=== PATIENT | male | born 1935 | race Caucasian/White ===

== ENCOUNTER → 2018-10-24 | Outpatient (CLI) | payer MEDICARE ==
[~2018-10-24] VITALS: Ht 172.7 cm; Wt 64.8 kg
[~2018-10-24] MED LIST: ASPIRIN E.C. 8181 MG PO; B COMPLEX #11 TAB PO; BIAXIN 500MG T500 MG PO; CARDIZEM CD 24240 MG PO; CLARITIN 1010 MG/TAB PO; COLESTID 1GM1 G PO; COZAAR 25MG25 MG/TAB PO; DEMADEX100 MG PO; ELIQUIS 5MG PO; EXELON3 MG PO; FLAGYL500 MG PO; FLOMAX 0.40.4 MG/CAP PO; GARLIC100 MG PO; HYDROCORTISONE30 G3 TP; IPRATROPIUM BROM3 M1 INH; LACRI LUBE1 OIN OP; LASIX 40MG TABL40 MG PO; LOPRESSOR 550 MG/TAB PO; MULTI-VITAMIN W1 TA1 PO; NAMENDA 10MG TA10 MG PO; NITROSTAT0.4 MG/TAB SL; OMEGA-3 1000 MG1 CAP PO; PRIL40 PO; PROBIOTIC FORMU1 CAP PO; PROCTOFOAM-HC F10 G1 RC; PROTONIX 40MG T40 MG PO; ROBITUSSIN A-C S1 M1 PO; SALONPAS; SENNA-LAX8.6 MG PO; SYSTANE 0.4%-0.1 SOL OP; TAMBOCOR 1100 MG/TAB PO; TOPROL XL 25MG25 MG PO; TUMS500 MG; TYLENOL 325MG325 MG PO; TYLENOL 500MG500 MG PO; TYLENOL 8 HR PO; ULTRAM 50MG TAB50 MG PO; ZYLOPRIM 300MG300 MG PO
[2018-10-24 08:23] VITALS: BP 127/72; PULSE 74
[2018-10-24 08:50] VITALS: BP 138/66; PULSE 72
== END ==
LOC: COL.RAD 08:10
DX: Z49.01 Encounter for fitting and adjustment of extracorporeal dialysis catheter (principal); N19 Unspecified kidney failure

== ENCOUNTER 2020-05-08 12:54 | Outpatient (CLI) | payer MEDICARE ==
[~2020-05-08] VITALS: Ht 172.7 cm; Wt 73.0 kg
[~2020-05-08 12:54] MED LIST changes: -ALEVE 220MG220 MG PO
[2020-05-08 14:00] VITALS: BP 159/69; PULSE 123; TEMP 97.8
[2020-05-08] MEDS ORDERED: ALEVE 220MG220 MG PO (14:24)
[2020-05-08 14:50] VITALS: BP 139/67; PULSE 87
--- NOTE | 2020-05-08 15:00 | NUR ---
report from Aris Ledezma.
[2020-05-08 15:10] VITALS: BP 134/50; PULSE 101
[2020-05-08 15:20] VITALS: BP 128/65; PULSE 98
--- NOTE | 2020-05-08 16:05 | NUR ---
Discharge instructions given to pt.pt verbalizes understanding.INT removed,catheter tip intact.pt escorted out via wheelchair by this nurse.
== END 2020-05-08 17:14 | disposition home or self-care (01) ==
LOC: COL.RAD 12:54
DX: R91.1 Solitary pulmonary nodule (principal); R59.0 Localized enlarged lymph nodes
CPT/HCPCS: Q9967

== ENCOUNTER → 2020-05-08 | Outpatient (REF) ==
[~2020-05-08] MED LIST changes: +ALEVE 220MG220 MG PO; +LASIX 20MG TABL20 MG PO
== END ==
LOC: COL.CARD 13:26
DX: Z01.810 Encounter for preprocedural cardiovascular examination (principal)
CPT/HCPCS: J2704